=== PATIENT | female | born 1985 | race African-American/Black ===

== ENCOUNTER 2025-03-24 00:39 | Emergency (ER) | payer OTHER ==
[2025-03-24] MEDS ORDERED: Acetaminophen 500 MG TAB ONE (01:03)
[2025-03-24] MEDS ORDERED: Ketorolac Tromethamine 30 MG (1 mL) VIAL ONE (01:03)
[2025-03-24] MEDS ORDERED: Methocarbamol 500 MG TAB ONE (01:04)
== END 2025-03-24 02:05 | disposition home or self-care (01) ==
LOC: CSHERS 00:39
DX: M54.9 Dorsalgia, unspecified (principal); Z86.73 Personal history of transient ischemic attack (TIA), and cerebral infarction without residual deficits; Z75.3 Unavailability and inaccessibility of health-care facilities; Z55.6 Problems related to health literacy
CPT/HCPCS: J1885